=== PATIENT | male | born 2000 | race Two or more races ===

== ENCOUNTER 2024-11-14 10:20 | Emergency (ER) | payer OTHER ==
[~2024-11-14] VITALS: Ht 167.6 cm; Wt 59.0 kg
[2024-11-14] MEDS ORDERED: IBUPROFEN 600 MG TABLET ONE (10:58)
[2024-11-14] MEDS ORDERED: ACETAMINOPHEN ES 500 MG TABLET ONE (10:58)
[2024-11-14] MEDS: IBUPROFEN 600 MG TABLET PO ONE (11:04)
[2024-11-14] MEDS: ACETAMINOPHEN ES 500 MG TABLET PO ONE (11:04)
[2024-11-14] MEDS ORDERED: IBUP-1490 PO (12:17)
[2024-11-14 12:25] VITALS: BP 119/69; TEMP 98; O2SAT 100
== END 2024-11-14 12:25 | disposition home or self-care (01) ==
LOC: ER 10:41
DX: S13.4XXA Sprain of ligaments of cervical spine, initial encounter (principal); R51.9 Headache, unspecified; V43.52XA Car driver injured in collision with other type car in traffic accident, initial encounter; Y93.89 Activity, other specified; Y92.488 Other paved roadways as the place of occurrence of the external cause; Y99.8 Other external cause status
CPT/HCPCS: 70450-TC; 72125-TC